=== PATIENT | male | born 1970 | race Caucasian/White ===

== ENCOUNTER 2016-09-10 12:22 | Emergency (ER) | payer OTHER ==
[2016-09-10 12:40] VITALS: BP 181/88
--- NOTE | 2016-09-10 13:20 | CR ---
EXAMINATION: Right ankle HISTORY: Pain COMPARISON: None TECHNIQUE: 3 views FINDINGS/IMPRESSION: There is an oblique nondisplaced distal fibular fracture identified. Well-corti cated ossific densities are noted distal to the medial and lateral malleoli, likely old injuries. An kle mortise and talar dome appear grossly intact.
--- NOTE | 2016-09-10 13:24 | EDM.PDOC ---
ED HPI Trauma - General Chief Complaint: Lower Extremity Injury/Pain Stated Complaint: RT LOWER LEG PAIN Time Seen by Provider: 09/10/16 12:40 Source: Reports: Patient History Limitations: Reports: No limitations - History of Present Illness INITIAL COMMENTS - FREE TEXT/NARRATIVE: HISTORY AND PHYSICAL: History of present illness: [Patient comes to the emergency room complaining of right ankle pain. He was walking in the field when he stepped into a hole with his right leg. Fell to the right side and caught himself with his right arm. Complained of immediate pain to his right ankle. Has been able to walk this morning. Actually felt that his pain was improving the more he walked on it. Took 3 Advil before he went to work this morning. Denies any other injuries. No numbness or tingling or paresthesias. History of previous fracture to right ankle.] Review of systems: As per history of present illness and below otherwise all systems reviewed and negative. Past medical history: As per history of present illness and as reviewed below otherwise noncontributory. Surgical history: As per history of present illness and as reviewed below otherwise noncontributory. Social history: No reported history of drug or alcohol abuse. Family history: As per history of present illness and as reviewed below otherwise noncontributory. Physical exam: HEENT: Atraumatic, normocephalic. Oral mucous membranes are pink and moist. Extremities: Swelling and ecchymosis to right distal lower leg, primarily over the lateral aspect. Capillary refill less than 2 seconds. No tenderness over calf. Neurovascular unremarkable. Neuro: Awake, alert, oriented. Motor and sensory unremarkable throughout. Exam nonfocal. Diagnostics: [Right ankle x-ray] Impression: [ fracture right distal fibula] Plan: [Radiologist's reports Oblique nondisplaced right fibular fracture. Patient is placed in a Cam Walker. Recommended stay off his foot, elevate foot apply ice as needed. Tylenol or ibuprofen as needed for discomfort. Followup with orthopedics in [place], where he lives, in 5-7 days. X-ray films and push to [facility] in 2 days ER note and records are sent to the [facility] orthopedic clinic. All of his questions are answered and concerns are addressed. ] Definitive disposition and diagnosis as appropriate pending reevaluation and review of above. Allergies/ADRs: Allergies No Known Allergies Allergy (Verified 09/10/16 12:34) Home Medications: Ambulatory Orders Lisinopril 10 mg PO DAILY 09/10/16 [Confirmed 09/10/16] Past Medical History Cardiovascular History: Reports: Hypertension - Past Surgical History Musculoskeletal Surgical History: Reports: Other (see below) Other Musculoskeletal Surgeries/Procedures:: ankle surgery Social & Family History - Family History Family Medical History: Noncontributory - Tobacco Use Smoking Status *Q: Never Smoker - Recreational Drug Use Recreational Drug Use: No Review of Systems - Review of Systems Review Of Systems: ROS reveals no pertinent complaints other than HPI. Trauma Exam - Physical Exam Exam: See Below Course - Vital Signs Last Recorded V/S: Last Vital Signs Temp 98.0 F 09/10/16 12:35 Pulse 69 09/10/16 12:35 Resp 18 09/10/16 12:35 BP 181/88 H 09/10/16 12:35 Pulse Ox 97 09/10/16 12:35 Departure - Departure Time of Disposition: 13:30 Disposition: Home, Self-Care 01 Condition: good Clinical Impression: Closed fracture of right distal fibula Qualifiers: Encounter type: initial encounter Fracture morphology: unspecified fracture morphology Qualified Code(s): S82.831A - Other fracture of upper and lower end of right fibula, initial encounter for closed fracture Instructions: Undisplaced Fibular Ankle Fracture Treated With Immobilization, Adult Referrals: PCP,None [Primary Care Provider] - Forms: ED Department Discharge Additional Instructions: The following information is given to patients seen in the emergency department who are being discharged to home. This information is to outline your options for follow-up care. We provide all patients seen in our emergency department with a follow-up referral. The need for follow-up, as well as the timing and circumstances, are variable depending upon the specifics of your emergency department visit. If you don't have a primary care physician on staff, we will provide you with a referral. We always advise you to contact your personal physician following an emergency department visit to inform them of the circumstance of the visit and for follow-up with them and/or the need for any referrals to a consulting specialist. The emergency department will also refer you to a specialist when appropriate. This referral assures that you have the opportunity for follow-up care with a specialist. All of these measure are taken in an effort to provide you with optimal care, which includes your follow-up. Under all circumstances we always encourage you to contact your private physician who remains a resource for coordinating your care. When calling for follow-up care, please make the office aware that this follow-up is from your recent emergency room visit. If for any reason you are refused follow-up, please contact the emergency department at and asked to speak to the emergency department charge nurse. [facility] [address] [place] [place] [address] Call the above listed clinic today to schedule a followup for 5-7 days from now. Tylenol or ibuprofen as needed for discomfort. Rest, ice, elevation. Wear walking boot, stay off your foot as much as possible. Return to ER as needed as discussed.
== END 2016-09-10 13:57 | disposition home or self-care (01) ==
LOC: MW.ED 12:22
DX: S82.831A Other fracture of upper and lower end of right fibula, initial encounter for closed fracture (principal); I10 Essential (primary) hypertension; Z98.890 Other specified postprocedural states; Z79.899 Other long term (current) drug therapy; W01.0XXA Fall on same level from slipping, tripping and stumbling without subsequent striking against object, initial encounter
CPT/HCPCS: 73610-26-RT; 73610-RT; 99283